=== PATIENT | male | born 1985 | race Caucasian/White ===

== ENCOUNTER 2018-05-25 21:26 | Emergency (ER) | payer MEDICARE ==
--- NOTE | 2018-05-25 21:55 | ERPHSYRPT ---
- History of Present Illness Time Seen by Provider: 05/25/18 21:54 Source: patient Exam Limitations: no limitations Physician History: 33 y/o white male presents with right foot and ankle injury that occurred over 24 hours ago. pt was walking backwards off a stairstep and twisted right foot and ankle. pt was ambulating with crutches all day. he has swelling and bruising present. Method of Injury: twisted Occurred: yesterday Quality: constant, aching, throbbing Severity of Pain-Max: moderate Severity of Pain-Current: moderate Lower Extremities Pain: foot: right, ankle: right Modifying Factors: Improves With: movement Associated Symptoms: popping sensation, other (hurts to bear weight) Allergies/Adverse Reactions: Penicillins Allergy (Verified 09/08/12 15:15) Home Medications: Quetiapine Fumarate 100 mg [Seroquel 100 MG] 100 mg PO HS 09/08/12 [ History] Hx Tetanus, Diphtheria Vaccination/Date Given: Yes Hx Influenza Vaccination/Date Given: Yes Hx Pneumococcal Vaccination/Date Given: Yes - Review of Systems Constitutional: No Symptoms Eyes: No Symptoms Ears, Nose, & Throat: No Symptoms Respiratory: No Symptoms Cardiac: No Symptoms Abdominal/Gastrointestinal: No Symptoms Genitourinary Symptoms: No Symptoms Musculoskeletal: Fall, Injury (right foot and ankle) Skin: No Symptoms Neurological: No Symptoms Psychological: No Symptoms Endocrine: No Symptoms Hematologic/Lymphatic: No Symptoms Immunological/Allergic: No Symptoms All Other Systems: Reviewed and Negative - Past Medical History Pertinent Past Medical History: Yes Neurological History: No Pertinent History ENT History: No Pertinent History Cardiac History: No Pertinent History Respiratory History: No Pertinent History Endocrine Medical History: No Pertinent History Musculoskeletal History: No Pertinent History GI Medical History: No Pertinent History History: No Pertinent History Psycho-Social History: Depression - Past Surgical History Past Surgical History: Yes Neuro Surgical History: No Pertinent History Cardiac: No Pertinent History Respiratory: No Pertinent History Gastrointestinal: Appendectomy, Hernia Repair Genitourinary: No Pertinent History Musculoskeletal: No Pertinent History Male Surgical History: No Pertinent History - Social History Smoking Status: Current some day smoker Exposure to second hand smoke: Yes Drug Use: none Patient Lives Alone: No - Nursing Vital Signs Nursing Vital Signs: Initial Vital Signs Temperature 97.8 F 05/25/18 21:52 Pulse Rate 65 05/25/18 21:52 Respiratory Rate 18 05/25/18 21:52 Blood Pressure 121/65 05/25/18 21:52 O2 Sat by Pulse Oximetry 97 05/25/18 21:52 Pain Scale Pain Intensity 7 - Physical Exam General Appearance: no apparent distress, alert, anxiety Eyes, Ears, Nose, Throat Exam: normal ENT inspection, moist mucous membranes Neck Exam: normal inspection, non-tender, supple, full range of motion Cardiovascular/Respiratory Exam: chest non-tender Gastrointestinal/Abdominal Exam: non-tender Back Exam: normal inspection, normal range of motion, No CVA tenderness, No vertebral tenderness Hips Exam: bilateral: non-tender, normal inspection, normal range of motion, no evidence of injury Legs Exam: bilateral leg: non-tender, normal inspection, normal range of motion , no evidence of injury Knees Exam: bilateral knee: non-tender, normal inspection, normal range of motion, no evidence of injury Ankle Exam: right ankle: bone tenderness, ecchymosis, soft tissue tenderness, swelling, left ankle: non-tender, normal inspection, normal range of motion, no evidence of injury Foot Exam: right foot: bone tenderness, ecchymosis, soft tissue tenderness, swelling, left foot: non-tender, normal inspection, normal range of motion, no evidence of injury Neuro/Tendon Exam: normal sensation, normal motor functions, normal tendon functions Mental Status Exam: alert, oriented x 3, cooperative Skin Exam: ecchymosis (of right foot and ankle) SpO2 Interpretation: normal O2 Delivery: Room Air - Course Nursing assessment & vital signs reviewed: Yes Ordered Tests: Active Orders 24 hr Category Date Time Status ANKLE (3 VIEWS) Stat Exams 05/25/18 22:07 Taken FOOT (MINIMUM 3 VIEWS) Stat Exams 05/25/18 22:07 Taken Medication Summary Discontinued Medications Generic Name Dose Route Start Last Admin Trade Name Freq PRN Reason Stop Dose Admin Oxycodone/Acetaminophen 1 tab 05/25/18 22:16 05/25/18 22:32 Oxycodone-Acetaminophen 10-325 PO 05/25/18 22:17 1 tab STAT STA Administration Oxycodone/Acetaminophen Confirm 05/25/18 22:32 Oxycodone-Acetaminophen 10-325 Administered 05/25/18 22:33 Dose 1 tab .ROUTE .STK-MED ONE - Progress Progress: improved, pain not gone completely, re-examined Progress Note: 05/25/18 22:50 right ankle xray-no acute fx or dislocation right foot xray-no acute fx or dislocation Counseled pt/family regarding: diagnosis, need for follow-up, rad results - Departure Time of Disposition: 22:53 Departure Disposition: Home Clinical Impression: Right foot sprain, Right ankle sprain Condition: Stable Critical Care Time: No Referrals: SHAHBAZ PETERSON [Primary Care Provider] - Additional Instructions: add ibuprofen 600mg orally 3 times daily for 2 days. use crutches. weightbearing as tolerated. follow up with primary doctor for persistent pain and swelling. keep right leg elevated above level of heart when not ambulating. Prescriptions: Oxycodone HCl/Acetaminophen [Percocet 5-325 mg Tablet] 1 each PO Q8H PRN PRN #9 tablet MDD 3 PRN Reason: Pain
[2018-05-25 22:01] VITALS: O2SAT 97
[2018-05-25] MEDS ORDERED: OXYCODONE-ACETAMINOPHEN 10-325 PO STA (22:16)
[2018-05-25] MEDS ORDERED: OXYCODONE-ACETAMINOPHEN 10-325 ONE (22:32)
[2018-05-25] MEDS ORDERED: PERCOCET TABLET 5/325MG PO STA (22:49)
[2018-05-25] MEDS ORDERED: PERCOCET TABLET 5/325MG ONE (23:06)
[2018-05-25 23:28] VITALS: BP 106/48; PULSE 53
--- NOTE | 2018-05-26 10:45 | XRAY ---
Exam: 3 view right ankle from 05/25/2018. Comparison: None. Indication: 33-year-old male with pain in right ankle and foot. Patient fell yesterday and complains of pain and swelling on top of right foot and laterally within right ankle. Also complains of pain within arch of foot with weightbearing. Findings: AP, oblique, and lateral radiographs of the right ankle were obtained. I see no acute fracture or dislocation. There is at least moderate soft tissue swelling overlying the lateral malleolus. The distal right fibula appears intact. The right ankle mortise is well-preserved and appears uniform. No definite anterior right ankle joint effusion is seen on the lateral radiograph. The plantar arch appears unremarkable. No definite abnormality of the right hindfoot is seen. Impression: 1. No acute right ankle fracture or dislocation is seen. 2. There is at least moderate soft tissue swelling overlying the lateral aspect of the right ankle. The right ankle mortise appears unremarkable on these nonstressed images.
--- NOTE | 2018-05-26 10:52 | XRAY ---
Exam: 3 view right foot series from 05/25/2018. Comparison: None. Indication: 33-year-old male with pain in right ankle and foot, patient fell yesterday and complains of pain/swelling on top of right foot and laterally within right ankle. He complains of pain within the arch of his right foot with weightbearing. Findings: AP, oblique, and lateral right breast of the right foot were obtained. I see no acute right foot fracture or dislocation. The plantar arch appears unremarkable. There is mild soft tissue prominence overlying the dorsal aspect of the right forefoot. Correlate clinically regarding soft tissue swelling in this projection. No radiopaque soft tissue foreign body is seen. There is incidental note of an os tibial externum (accessory bone/ossicle) at the posterior medial margin of the tarsal navicular bone. This represents an unremarkable finding. There is incidental fusion of the DIP joint of the right fifth toe representing a normal developmental/congenital variant. The remainder of the joint spaces within the right foot appears unremarkable. The tarsals align correctly with the metatarsals. Impression: 1. No acute fracture or dislocation of the right foot is seen. 2. There is some mild soft tissue prominence overlying the dorsal aspect of the right forefoot. Correlate clinically regarding soft tissue swelling in this projection.
== END 2018-05-25 23:20 | disposition home or self-care (01) ==
LOC: ED 21:26
DX: S93.601A Unspecified sprain of right foot, initial encounter (principal); S93.401A Sprain of unspecified ligament of right ankle, initial encounter; X50.1XXA Overexertion from prolonged static or awkward postures, initial encounter; R58 Hemorrhage, not elsewhere classified
CPT/HCPCS: 73610; 73630; 99284; A9270-GY